=== PATIENT | female | born 2000 | race African-American/Black ===

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

== ENCOUNTER 2019-01-17 18:38 | Outpatient (CLI) | payer MEDICAID ==
--- NOTE | 2019-01-17 19:26 | RADIOLOGY REPORT (SQ) ---
EXAM DESCRIPTION: U/S OB LIMITED COMPLETED DATE/TIME: 01/17/2019 7:14 pm REASON FOR STUDY: and placenta wellbeing COMPARISON: None. TECHNIQUE: Limited transvaginal grayscale ultrasound for evaluation of specific requested obstetrica l parameters. LIMITATIONS: None. FINDINGS: CERVICAL LENGTH: Not assessed TY: 13.0 cm. FHR: 131 beats per minute. PRESENTATION: Cephalic. PLACENTA: Posterior ANATOMY: Not assessed OTHER: No other significant findings. IMPRESSION: LIMITED OBSTETRICAL ULTRASOUND WITH MEASURED PARAMETERS DELINEATED ABOVE. Trimester of : Third trimester - 28 weeks to delivery. TECHNICAL DOCUMENTATION: JOB ID: [id number] [employer]- All Rights Reserved Reading location - IP/workstation name: [email or web address]
[2019-01-17] MEDS ORDERED: NALBUPHINE HCL INJ 10 MG/1 ML AMPULE ONE ×2 (21:00→22:06)
[2019-01-17] MEDS ORDERED: NALBUPHINE HCL INJ 10 MG/1 ML AMPULE INJ ONE (21:00)
--- NOTE | 2019-01-17 21:56 | Non Stress Test Report ---
Non Stress Test Datetime Report Generated by CPN: 01/17/2019 21:55 DEMOGRAPHIC EGA NST: 36.1 INDICATION Indication for Study: Ordered by Provider VITAL SIGNS Temperature - NST: 98.0 MONITORING Monitor Explained: Monitor Explained; Test Explained; Patient Verbalized Understanding Time on Monitor: 01/17/2019 18:28 Time off Monitor: 01/17/2019 19:15 NST Duration: 47 NST INTERVENTIONS NST Interventions: IV Fluids Physician Notified NST: Dr. Younger BABY A: [id number] BABY A Movement : Present Contraction Frequency : x2 FHR Baseline : 125 Accelerations : 15X15 Decelerations : None Variability : Moderate 6-25bpm NST Review: Meets Criteria for Reactive NST NST Review and Verified By : Luly Zuleta RN NST Results: Reactive NST REPORT Report Trigger: Send Report
== END 2019-01-17 22:09 | disposition home or self-care (01) ==
LOC: LC 18:38
PROVIDERS: ATTEND Obstetrics & Gynecology
PROC: 4A1HXCZ Monitoring of Products of Conception, Cardiac Rate, External Approach (ICD-10-PCS; principal; 2019-01-17)
DX: O47.03 False labor before 37 completed weeks of gestation, third trimester (principal); Z3A.36 36 weeks gestation of pregnancy
CPT/HCPCS: 59025; 76815; J2300

== ENCOUNTER 2019-01-22 13:55 | Inpatient (IN) | payer MEDICAID ==
[2019-01-22 14:45] LABS: APPEARANCE,URINE CLEAR; BILIRUBIN,URINE NEGATIVE (NEGATIVE); COLOR,URINE STRAW; GLUCOSE, URINE NEGATIVE (NEGATIVE); KETONES,URINE NEGATIVE (NEGATIVE); LEUKOCYTE ESTERASE,URINE NEGATIVE (NEGATIVE); NITRITE,URINE NEGATIVE (NEGATIVE); PROTEIN,URINE NEGATIVE (NEGATIVE); URINE SPECIFIC GRAVITY 1.006; UROBILINOGEN,URINE NEGATIVE mg/dL (<2.0)
[2019-01-22 15:02] LABS: URINE AMPHETAMINES SCREEN NEGATIVE; URINE BARBITURATES SCREEN NEGATIVE; URINE BENZODIAZEPINES SCREEN NEGATIVE; URINE COCAINE SCREEN NEGATIVE; URINE MARIJUANA (THC) SCREEN NEGATIVE; URINE METHADONE SCREEN NEGATIVE; URINE PHENCYCLIDINE SCREEN NEGATIVE
[2019-01-22] MEDS ORDERED: RINGERS SOLUTION,LACTATED 1,000 ML IV PRN (15:16)
[2019-01-22] MEDS ORDERED: PENICILLIN G POTASSIUM 5,000,000 UNIT in DEXTROSE 5%-WATER 100 ML IV ONE (15:16)
[2019-01-22] MEDS ORDERED: RINGERS SOLUTION,LACTATED 1,000 ML IV ONE (15:16)
--- NOTE | 2019-01-22 15:21 | Admission Physical ---
Datetime Report Generated by CPN: 01/22/2019 15:21 CURRENT ADMISSION Chief Complaint: Uterine Contractions Chief Complaint Other: contractions Indication for Induction: Not Applicable Admit Impression : , Intrauterine Admit Plan: Admit to Unit; Initiate Labor Protocol Admit Plan- Other: Limited PNC ALLERGIES Medication Allergies: No Medication Allergies: No Known Allergies (12/19/2014) Latex: No Latex Allergies Food Allergies: N/A OBSTETRICAL HISTORY EDC: 02/13/2019 00:00 : 1 Para: 0 Term: 0 : 0 SAB: 0 IAB: 0 Ectopic: 0 Livin Cesareans: 0 VBACs: 0 Multiple Births: 0 Gestational Diabetes: No Rh Sensitization: No Incompetent Cervix: No LIO: No Infertility: No ART Treatment: No Uterine Anomaly: No IUGR: No Hx Previous C/S: No Macrosomia: No Hx Loss/Stillborn: No PIH: No Hx : No Placenta Previa/Abruption: No Depression/PP Depression: No PTL/PROM: No Post Hemorrhage: No Current Procedures: Ultrasound; NST Obstetrical History Comments: G1 - Current SEE RECORDS Alcohol: No Marijuana : No Cocaine: No Other Illicit Drugs: No Cigarettes: Never Smoker. [id number] MEDICAL HISTORY Diabetes: No Blood Transfusion: No Pulmonary Disease (Asthma, TB): No Breast Disease: No Hypertension: No Ob Gyn Surgery: No Heart Disease: No Hosp/Surgery: No Autoimmune Disorder: No Anesthetic Complications: No Kidney Disease: No Abnormal Pap Smear: No Neuro/Epilepsy: No Psychiatric Disorders: No Other Medical Diseases: No Hepatitis/Liver Disease: No Significant Family History: No Varicosities/Phlebitis: No Trauma/Violence : No Thyroid Dysfunction: No INFECTIOUS HISTORY Gonorrhea: No Genital Herpes: No Chlamydia: No Tuberculosis: No Syphilis: No Hepatitis: No HIV/AIDS Exposure: No Rash or Viral Illness: No HPV: No PHYSICAL EXAM General: Normal HEENT: Deferred Neurologic: Normal Thyroid: Deferred Heart: Normal Lungs: Normal Breast: Deferred Back: Deferred Abdomen: Normal Genitourinary Exam: Normal Extremities: Deferred DTRs: Deferred Pelvic Type: Adequate Vital Signs: Reviewed VAGINAL EXAM Dilatation: 4 Effacement: 100 Station: -1 MEMBRANES Membranes: Bulging FETUS A EGA: 36.6 Monitoring: External US FHR- Baseline: 135 Variability: Moderate 6-25bpm Accelerations: 15X15 Decelerations: None FHR Category: Category I Presentation: Vertex Admit Comment: sent from office GBS repeated today, was negative 12/18/18 desires epidural actim prom neg PLANS FOR LABOR AND DELIVERY Labor and Delivery: None Pain Management: Epidural Feeding Preference: Formula Benefit of Breast Feed Discussed: Yes Circumcision: Yes INFORMED CONSENT Informed Consent Obtained: Risks, Benefits and Alternatives Discussed Assignment: Catalina Bean MD Signature: with User ID: [email or web address] : with User ID: [email or web address]
[2019-01-22] MEDS ORDERED: BETAMET ACET/BETAMET NA INJ 6 MG/1 ML IM ONE (15:24)
[2019-01-22] MEDS ORDERED: OXYTOCIN 10 UNIT/ML VIAL ONE (15:50)
[2019-01-22] MEDS ORDERED: MISOPROSTOL 0.2 MG TABLET ONE (15:51)
[2019-01-22] MEDS ORDERED: OXYTOCIN/NORMAL SALINE 20 UNIT/1,000 ML RTUINJ ONE (15:51)
[2019-01-22] MEDS ORDERED: LIDOCAINE 1% INJ-PF (10 MG/ML) 30 ML SDV ONE (15:51)
[2019-01-22] MEDS ORDERED: PENICILLIN G-K 5 MILLION UNIT VIAL ONE (15:51)
[2019-01-22] MEDS ORDERED: BETAMET ACET/BETAMET NA INJ 6 MG/1 ML ONE (15:54)
[2019-01-22 16:16] LABS: CHLAM PCR NOT DETECTED (NOT DETECT)
[2019-01-22 16:30] LABS: ABSOLUTE LYMPHOCYTES (AUTO) 1.8 10^3/uL (0.5-4.7); ABSOLUTE MONOCYTES (AUTO) 0.9 10^3/uL (0.1-1.4); ABSOLUTE NEUT (AUTO) 7.5 10^3/uL (1.7-8.2); BASOPHILS % (AUTO) 0.4 % (0-2); EOSINOPHILS % (AUTO) 0.4 % (0-6); HEMATOCRIT 35.2 % (36.0-47.0); HEMOGLOBIN 11.8 g/dL (12.0-15.5); LYMPHOCYTES % (AUTO) 17.6 % (13-45); MEAN CORPUSCULAR HEMOGLOBIN 28.4 pg (27.0-33.4); MEAN CORPUSCULAR HGB CONC 33.5 g/dL (32.0-36.0); MEAN CORPUSCULAR VOLUME 85 fl (80-97); MONOCYTES % (AUTO) 8.7 % (3-13); PLATELET COUNT 213 10^3/uL (150-450); RED BLOOD COUNT 4.15 10^6/uL (3.72-5.28); RED CELL DISTRIBUTION WIDTH 14.9 % (11.5-14.0); SEGMENTED NEUTROPHILS % (AUTO) 72.9 % (42-78); TOTAL CELLS COUNTED % (AUTO) 100 %; WHITE BLOOD COUNT 10.3 10^3/uL (4.0-10.5)
[2019-01-22] MEDS ORDERED: FENTANYL CITRATE INJ/PF 100 MCG/2 ML AMPUL ONE (16:42)
[2019-01-22] MEDS ORDERED: NORMAL SALINE 250 ML IV PRN (18:08)
[2019-01-22] MEDS ORDERED: MEASLES,MUMPS&RUBELLA VACC/PF 0.5 ML VIAL SUBCUT PRN (19:21)
[2019-01-22] MEDS ORDERED: ACETAMINOPHEN WITH CODEINE #3 TABLET PO PRN (19:21)
[2019-01-22] MEDS ORDERED: GLYCERIN/WITCH HAZEL LEAF 1 EACH MED..WIPE TP PRN (19:21)
[2019-01-22] MEDS ORDERED: ACETAMINOPHEN 325 MG TABLET PO PRN (19:21)
[2019-01-22] MEDS ORDERED: NA PHOS,M-B/NA PHOS,DI-BA (ADULT) 133 ML ENEMA PR PRN (19:21)
[2019-01-22] MEDS ORDERED: DIBUCAINE 1% OINTMENT 56 GM TP PRN (19:21)
[2019-01-22] MEDS ORDERED: BENZOCAINE/MENTHOL AEROSOL SPRAY 56 ML TOP PRN (19:21)
[2019-01-22] MEDS ORDERED: DIPHENHYDRAMINE HCL 25 MG CAPSULE PO PRN (19:21)
[2019-01-22] MEDS ORDERED: PROMETHAZINE HCL 25 MG SUPP.RECT PR PRN (19:21)
[2019-01-22] MEDS ORDERED: OXYTOCIN/NORMAL SALINE 20 UNIT/1,000 ML RTUINJ IV PRN (19:21)
[2019-01-22] MEDS ORDERED: MAGNESIUM HYDROXIDE SUSP 30 ML UDCUP PO PRN (19:21)
[2019-01-22] MEDS ORDERED: ZOLPIDEM TARTRATE 5 MG TABLET PO PRN (19:21)
[2019-01-22] MEDS ORDERED: PROMETHAZINE HCL 25 MG TABLET PO PRN (19:21)
[2019-01-22] MEDS ORDERED: PSEUDOEPHEDRINE HCL 30 MG TABLET PO PRN (19:21)
[2019-01-22] MEDS ORDERED: DIPH/PERTUSS(ACELL)/TETANUS VAC/PF 0.5 ML SYR (>=10YO) IM PRN (19:21)
[2019-01-22] MEDS ORDERED: PENICILLIN G POTASSIUM 2,500,000 UNIT in DEXTROSE 5%-WATER 50 ML IV SCH (19:21)
[2019-01-22] MEDS ORDERED: PROMETHAZINE HCL INJ 25 MG/1 ML VIAL IV PRN (19:21)
--- NOTE | 2019-01-22 19:50 | Delivery Summary ---
Del Sum A-C Datetime Report Generated by CPN: 01/22/2019 19:50 DELIVERY PERSONNEL DELIVERY PERSONNEL: [id number] Delivery Doctor:: Meron Doherty CNM Nurse Senior Database Administrator Certified:: Meron Doherty CNM Labor and Delivery Nurse:: Wen Grigsby RN Labor and Delivery Nurse:: DIAMANTE Jang Nursery Nurse:: Marti Casas RN Stitch Welder/LINER ROLL CHANGER: Idalmis Clemens, ST MATERNAL INFORMATION Delivery Anesthesia: None Medications After Delivery: Pitocin Bolus-Please Comment; Pitocin Drip 20 Units/1000ml NSS; Cytotec 800mcg Per Rectum/Vagina Meds After Delivery Comment: Pitocin 20 units in 1000 ml nss open for bolus Delivery QBL: 450 Maternal Complications: Precipitous Labor (<3hrs); Other Provider Comments: Precipitous labor and del over 2* perineal lac, OA to FAVIAN. Shoulders del easily, baby placed on maternal abd. Cord clamped x 2 cut per family member. 3VC. Placenta spont via nicole, calcified. Perineum repaired and then clots removed from RADHA d/t steady trickle. Bleeding stablized, mother and infant stable. LABOR SUMMARY EDC: 02/13/2019 00:00 No. Babies in Womb: 1 Attempted: No Labor Anesthesia: None LABOR INFORMATION Reason for Induction: Not Applicable Onset of Labor: 01/22/2019 15:00 Complete Dilatation: 01/22/2019 16:22 Oxytocin: N/A Group B Beta Strep: 1 NO GROUP B STREPTOCOCCUS RECOVERED Antibiotics # of Doses: 1 Antibiotics Time of Last Dose: 1605 Name of Antibiotic Given: PENICILLIN G Steroids Given: Partial Course Reason Steroids Not Administered: Not Applicable Other Reason Not Administered: RECEIVED 2 DOSES IN [facility] Membranes Rupture Method: Spontaneous Rupture of Membranes: 01/22/2019 16:20 Length of Rupture (hr): 0.13 Amniotic Fluid Color: Clear Amniotic Fluid Amount: Moderate Amniotic Fluid Odor: Normal STAGES OF LABOR Stage 1 hr: 1 Stage 1 min: 22 Stage 2 hr: 0 Stage 2 min: 6 Stage 3 hr: 0 Stage 3 min: 7 Total Time in Labor hr: 1 Total Time in Labor min: 35 VAGINAL DELIVERY Episiotomy: None Laceration #1: Perineal; Vaginal Laceration Extension #1: Second Degree Laceration Repair: Yes Laceration Repair Note: 2* perineal lac repaired with chromic suture in usual fashion, 1% lidocaine used fo repair Sponge Count Correct: N/A Sharps Count Correct: N/A CSECTION DELIVERY Primary Indication: N/A Secondary Indication: N/A CSection Incidence: N/A Labor: N/A Elective: N/A CSection Incision: N/A BABY A INFORMATION Delivery Date/Time: 01/22/2019 16:28 Method of Delivery: Vaginal Born in Route : No : N/A Forceps: N/A Vacuum Extraction: N/A Shoulder Dystocia : No PRESENTATION/POSITION BABY A Presentation: Cephalic Cephalic Presentation: Vertex Vertex Position: Right Occipital Anterior Breech Presentation: N/A PLACENTA INFORMATION BABY A Placenta Delivery Time : 01/22/2019 16:35 Placenta Method of Delivery: Spontaneous Placenta Status: Delivered SCORES BABY A Heart Rate 1 min: >100 bpm Resp Effort 1 min: Good Cry Reflex Irritability 1 min: Cough or Sneeze or Pulls Away Muscle Tone 1 min: Some Flexion of Extremities Color 1 min: Body [place], Extremities Blue Resuscitation Effort 1 min: Tactile Stimulation SCORE 1 MIN: 8 Heart Rate 5 min: >100 bpm Resp Effort 5 min: Good Cry Reflex Irritability 5 min: Cough or Sneeze or Pulls Away Muscle Tone 5 min: Active Motion Color 5 min: Body [place], Extremities Blue Resuscitation Effort 5 min: N/A SCORE 5 MIN: 9 Resuscitation Effort 10 min: N/A INFANT INFORMATION BABY A Gestational Age at Delivery: 40.0 Gestational Status: Full Term- 39- 40.6 Weeks Infant Outcome : Liveborn Condition : Stable Infant Sex: Male IDENTIFICATION BABY A Verification Date/Time: 01/22/2019 17:27 ID Band Number: [id number] Mother's Name Verified: Yes Infant RN Verifying : Dulce Camp RNC Additional Verifying Personnel: S Brown LINER ROLL CHANGER WEIGHT/LENGTH BABY A Infant Birthweight (gm): 3206 Weight (lb): 7 Infant Weight (oz): 1 Infant Length (in): 20.00 Length (cm): 50.80 CORD INFORMATION BABY A No. Cord Vessels: 3 Nuchal Cord : N/A Cord Blood Taken: Yes-For Storage (Mom's Blood type +) Infant Suction: None ASSESSMENT BABY A Infant Complications: Other Infant Complications- Other: 36.2 weeks Physical Findings at Delivery: Extra Digit(s) Physical Findings- Other: extra digits right and left hand Infant Respirations: Appears Normal Skin to Skin: Yes Visual Aid Expert/ALS Called : No Infant Care By: Miesha Casas RN Transferred To: Remains with Mother BABY B INFORMATION : N/A SIGNATURES Assignment: Catalina Bean MD Signature: with User ID: [email or web address] : with User ID: [email or web address] : I was personally available for consultation and serving as supervising physician for the P.
[2019-01-22] MEDS: FAMOTIDINE 20 MG TABLET PO SCH (21:45)
[2019-01-22] MEDS: IBUPROFEN 800 MG TABLET PO SCH (21:45)
[2019-01-23] MEDS: IBUPROFEN 800 MG TABLET PO SCH ×3 (05:34→21:27)
[2019-01-23 07:04] LABS: HEMATOCRIT 35.6 % (36.0-47.0); HEMOGLOBIN 11.6 g/dL (12.0-15.5); MEAN CORPUSCULAR HEMOGLOBIN 27.7 pg (27.0-33.4); MEAN CORPUSCULAR HGB CONC 32.4 g/dL (32.0-36.0); MEAN CORPUSCULAR VOLUME 85 fl (80-97); PLATELET COUNT 236 10^3/uL (150-450); RED BLOOD COUNT 4.18 10^6/uL (3.72-5.28); RED CELL DISTRIBUTION WIDTH 14.9 % (11.5-14.0); WHITE BLOOD COUNT 20.6 10^3/uL (4.0-10.5)
[2019-01-23] MEDS: SENNOSIDES/DOCUSATE 8.6-50 MG 1 EACH TABLET PO SCH (09:21)
[2019-01-23] MEDS: PRENATAL VITAMIN W DHA CAPSULE PO SCH (09:21)
[2019-01-23] MEDS: FERROUS SULFATE 325 MG TABLET PO SCH ×2 (09:21→17:42)
[2019-01-23] MEDS: FAMOTIDINE 20 MG TABLET PO SCH ×2 (09:21→21:27)
[2019-01-23] MEDS: DOCUSATE SODIUM 100 MG CAPSULE PO SCH ×2 (09:21→17:42)
--- NOTE | 2019-01-23 10:04 | PDOC PROGRESS REPORT ---
Subjective-OB Progress Note for:: 01/23/19 Subjective: Doing well, no c/o, bottle feeding Physical Exam (OB) Vital Signs: Temp Pulse Resp BP Pulse Ox 98.2 F 64 16 100/51 L 99 01/23/19 07:22 01/23/19 07:22 01/23/19 07:22 01/23/19 07:22 01/23/19 07:22 Intake & Output 01/22/19 01/23/19 01/24/19 06:59 06:59 06:59 Weight 80.3 kg - PIH/Pre-Eclampsia Headache: Absent Epigastric Pain: No Visual Changes: No - Lochia Lochia Amount: Scant < 10 ml Lochia Color: Rubra/Red - Abdomen Description: Soft, Round Hernia Present: Yes Fundal Description: Firm, Midline Fundal Height: u/u - u/2 Objective-Diagnostic Laboratory: 01/23/19 06:29 01/22/19 01/22/19 01/22/19 14:15 16:10 16:10 WBC 10.3 RBC 4.15 Hgb 11.8 L Hct 35.2 L MCV 85 MCH 28.4 MCHC 33.5 RDW 14.9 H Plt Count 213 Seg Neutrophils % 72.9 Lymphocytes % 17.6 Monocytes % 8.7 Eosinophils % 0.4 Basophils % 0.4 Absolute Neutrophils 7.5 Absolute Lymphocytes 1.8 Absolute Monocytes 0.9 Absolute Eosinophils 0.0 Absolute Basophils 0.0 Urine Color STRAW Urine Appearance CLEAR Urine pH 8.0 Ur Specific [place] 1.006 Urine Protein NEGATIVE Urine Glucose (UA) NEGATIVE Urine Ketones NEGATIVE Urine Blood NEGATIVE Urine Nitrite NEGATIVE Ur Leukocyte Esterase NEGATIVE Blood Type A POSITIVE Antibody Screen TNP 01/23/19 06:29 WBC 20.6 H RBC 4.18 Hgb 11.6 L Hct 35.6 L MCV 85 MCH 27.7 MCHC 32.4 RDW 14.9 H Plt Count 236 Seg Neutrophils % Lymphocytes % Monocytes % Eosinophils % Basophils % Absolute Neutrophils Absolute Lymphocytes Absolute Monocytes Absolute Eosinophils Absolute Basophils Urine Color Urine Appearance Urine pH Ur Specific [place] Urine Protein Urine Glucose (UA) Urine Ketones Urine Blood Urine Nitrite Ur Leukocyte Esterase Blood Type Antibody Screen Assessment and Plan(PN) - Assessment and Plan (1) Vaginal delivery Is this a current diagnosis for this admission?: Yes (2) labor in third trimester Qualifiers: labor delivery status: without delivery Qualified Code(s): O60.03 - labor without delivery, third trimester Is this a current diagnosis for this admission?: Yes (3) Limited care Qualifiers: Trimester: unspecified trimester Qualified Code(s): O09.30 - Supervision of with insufficient care, unspecified trimester Is this a current diagnosis for this admission?: Yes - Time Spent with Patient Time with patient: Less than 15 minutes Medications reviewed and adjusted accordingly: Yes - Disposition Anticipated Discharge: Home Within: within 24 hours
[2019-01-23] MEDS: ACETAMINOPHEN WITH CODEINE #3 TABLET PO PRN ×2 (12:35→21:26)
[2019-01-24] MEDS: IBUPROFEN 800 MG TABLET PO SCH (05:20)
[2019-01-24 08:02] LABS: HEMATOCRIT 36.8 % (36.0-47.0); HEMOGLOBIN 11.9 g/dL (12.0-15.5); MEAN CORPUSCULAR HGB CONC 32.4 g/dL (32.0-36.0); MEAN CORPUSCULAR VOLUME 86 fl (80-97); PLATELET COUNT 234 10^3/uL (150-450); RED BLOOD COUNT 4.26 10^6/uL (3.72-5.28); RED CELL DISTRIBUTION WIDTH 14.9 % (11.5-14.0); WHITE BLOOD COUNT 17.4 10^3/uL (4.0-10.5)
[2019-01-24 09:36] VITALS: BP 110/61
[2019-01-24] MEDS: PRENATAL VITAMIN W DHA CAPSULE PO SCH (10:27)
[2019-01-24] MEDS: FERROUS SULFATE 325 MG TABLET PO SCH (10:27)
[2019-01-24] MEDS: SENNOSIDES/DOCUSATE 8.6-50 MG 1 EACH TABLET PO SCH (10:28)
[2019-01-24] MEDS: DOCUSATE SODIUM 100 MG CAPSULE PO SCH (10:28)
[2019-01-24] MEDS: FAMOTIDINE 20 MG TABLET PO SCH (10:28)
--- NOTE | 2019-01-24 12:35 | PDOC DISCHARGE SUMMARY ---
Final Diagnosis Discharge Date: 01/24/19 - Final Diagnosis (1) Normal course Is this a current diagnosis for this admission?: Yes (2) Labor, precipitous, delivered Is this a current diagnosis for this admission?: Yes (3) Vaginal delivery Is this a current diagnosis for this admission?: Yes (4) Limited care Is this a current diagnosis for this admission?: Yes Discharge Data - Discharge Medication Home Medications: No122/Iron/Folic Acid [ Multi Tablet] 1 each PO DAILY 12/18/18 Reason(s) for Admission: Onset of Labor Procedures: NST Intrapartum Procedure(s): Spontaneous Vaginal Delivery Complication(s): Laceration-Perineal Laceration-Degree: 2nd - Diagnosis Test Laboratory: Temp Pulse Resp BP Pulse Ox 97.8 F 60 22 110/61 100 01/24/19 10:42 01/24/19 10:42 01/24/19 10:42 01/24/19 10:42 01/24/19 10:42 01/22/19 01/22/19 01/23/19 14:15 16:10 06:29 RBC 4.15 4.18 Hgb 11.8 L 11.6 L Hct 35.2 L 35.6 L Urine Opiates Screen NEGATIVE 01/24/19 06:51 RBC 4.26 Hgb 11.9 L Hct 36.8 Urine Opiates Screen - Discharge information/Instructions Discharge Activity: Balance Activity w/Rest, Pelvic Rest Discharge Diet: Regular Disposition: HOME, SELF-CARE Follow up with: [facility] in: 4, Weeks
== END 2019-01-24 13:45 | disposition home or self-care (01) | DRG 807 ==
LOC: LC 13:55 → LR 15:17 → 2S 20:36
PROVIDERS: ADMIT Student in an Organized Health Care Education/Training Program; ATTEND Student in an Organized Health Care Education/Training Program
PROC: 10E0XZZ Delivery of Products of Conception, External Approach (ICD-10-PCS; principal; 2019-01-22)
PROC: 0KQM0ZZ Repair Perineum Muscle, Open Approach (ICD-10-PCS; 2019-01-22)
DX: O62.3 Precipitate labor (principal); Z37.0 Single live birth; O99.824 Streptococcus B carrier state complicating childbirth; O70.1 Second degree perineal laceration during delivery; Z3A.40 40 weeks gestation of pregnancy
CPT/HCPCS: 36415; 80307; 81005; 84112; 85025; 85027; 86592; 86850; 86900; 86901; 87081; 87491; 87591; 88307; J0702; J2540; J2590; J3010; J3490

== ENCOUNTER 2019-01-31 21:09 | Emergency (ER) | payer MEDICAID ==
--- NOTE | 2019-01-31 22:11 | ER Document Report ---
ED General - General Chief Complaint: Vaginal Bleeding Stated Complaint: HEAVY VAGINAL BLEEDING Time Seen by Provider: 01/31/19 21:59 Primary Care Provider: PEBBLES OROZCO DO [Primary Care Provider] - Follow up as needed Notes: Patient is a 18-year-old female presents with complaint of vaginal bleeding. She says she has had consistent vaginal bleeding since she delivered several days ago. She had vaginal delivery without significant complications. No fevers. No vomiting. No passing out episodes. Some dizziness. She says the bleeding elevate heavier tonight and therefore she came to the ER. She did try to contact her OB office but they are closed. No other complaints at this time. She delivered on January 22 and was discharged from hospital on January 24. TRAVEL OUTSIDE OF THE [place] IN LAST 30 DAYS: No - Related Data Allergies/Adverse Reactions: No Known Allergies Allergy (Unverified 12/19/14 12:43) Past Medical History - Social History Smoking Status: Never Smoker Frequency of alcohol use: None Drug Abuse: None Family History: Reviewed & Not Pertinent Patient has suicidal ideation: No Patient has homicidal ideation: No Pulmonary Medical History: Denies: Hx Asthma, Hx Bronchitis Endocrine Medical History: Denies: Hx Diabetes Mellitus Type 1 Renal/ Medical History: Denies: Hx Peritoneal Dialysis Psychiatric Medical History: Denies: Hx Anxiety Traumatic Medical History: Reports: Hx Fractures - Arm - Immunizations Immunizations up to date: Yes Hx Diphtheria, Pertussis, Tetanus Vaccination: Yes Review of Systems - Review of Systems Notes: My Normal Review Basic REVIEW OF SYSTEMS: CONSTITUTIONAL : Denies fever, chills, or sweats. Denies recent illness. CARDIOVASCULAR: Denies chest pain. RESPIRATORY: Denies cough, cold, or chest congestion. Denies shortness of breath, difficulty breathing, or wheezing. GASTROINTESTINAL: Some suprapubic abdominal pain. Denies nausea, vomiting, or diarrhea. FEMALE GENITOURINARY: vaginal bleeding MUSCULOSKELETAL: Denies neck or back pain or joint pain or swelling. SKIN: Denies rash or skin lesions. NEUROLOGICAL: Denies altered mental status or loss of consciousness. Denies headache. Denies weakness or paralysis or loss of use of either side. Denies problems with gait or speech. Denies sensory or motor loss. ALL OTHER SYSTEMS REVIEWED AND NEGATIVE. Physical Exam - Vital signs Vitals: Temp Pulse BP Pulse Ox 98.2 F 57 L 115/78 98 07/25/19 21:20 01/31/19 21:20 01/31/19 21:20 01/31/19 21:20 - Notes Notes: General Appearance: Well nourished, alert, cooperative, no acute distress, mild obvious discomfort. Vitals: reviewed, See vital signs table. Eyes: PERRL, EOMI, Conjuctiva clear Mouth: No decreasd moisture Lungs: No wheezing, No rales, No rhonci, No accessory muscle use, good air exchange bilaterally. Heart: Normal rate, Regular rythm, No murmur, no rub Abdomen: Normal BS, soft, No rigidity, No abdominal tenderness, No guarding, no rebound, no abdominal masses, no organomegaly Pelvic exam: Pelvic exam performed with female nurse, Debbie Eddy, bedside. External genitalia appears to be intact. Do not see any abnormal vaginal lacerations. She does have some blood coming from the vaginal introitus. She does not have an active large flow at this time. Skin: warm, dry, appropriate color, no rash Neuro: speech clear, oriented x 3, normal affect, responds appropriately to questions. Course - Re-evaluation Re-evalutation: 02/01/19 00:10 She looks very well on exam. Vital signs are normal. Ultrasound discussion concerning findings. On exam she had some vaginal bleeding but it was not a large active hemorrhage. Hemoglobin is normal. At this time I feel she safe to be discharged home. I did discuss case with Dr. Luis, digital account executive on-call, who requested she come to the office this coming morning. He says she does not need an appointment and that she should just show up this morning they will reevaluate her. I explained the plan to the patient she is agreeable with the. I encouraged her to return to ER if she has worsening bleeding, fevers, worsening pain, or she feels like she is worsening in any way. Patient agrees with plan will be discharged home. Dictation of this chart was performed using voice recognition software; therefore, there may be some unintended grammatical errors. - Vital Signs Vital signs: Temp Pulse Resp BP Pulse Ox 98.2 F 57 L 115/78 98 01/31/19 21:20 01/31/19 21:20 01/31/19 21:20 01/31/19 21:20 - Laboratory Result Diagrams: 01/31/19 21:35 01/31/19 21:35 Laboratory results interpreted by me: 01/31/19 21:35 RDW 14.5 H Seg Neutrophils % 41.7 L Lymphocytes % 46.8 H Discharge - Discharge Clinical Impression: hemorrhage of vagina Condition: Good Disposition: HOME, SELF-CARE Additional Instructions: Currently your blood counts look okay and your ultrasound did not show any concerning findings. It is sill very important that you follow-up this morning with the FUEL BUYER physician at the [facility]. I did speak with Dr. Luis. He is the FUEL BUYER physician application counselor. He wants you to come to the office this morning. He said you do not need an appointment. He said just to show up at the office this morning and they will work you in and evaluate you. Please have a low threshold to return to ER for fevers, worsening pain, heavy bleeding, or if you feel like you are worsening in any way. Referrals: BJORN LUIS MD [ACTIVE STAFF] - 02/01/19
[2019-01-31 22:27] LABS: ABSOLUTE EOSINOPHILS # (AUTO) 0.2 10^3/uL (0.0-0.6); ABSOLUTE LYMPHOCYTES (AUTO) 2.5 10^3/uL (0.5-4.7); ABSOLUTE MONOCYTES (AUTO) 0.5 10^3/uL (0.1-1.4); ABSOLUTE NEUT (AUTO) 2.3 10^3/uL (1.7-8.2); BASOPHILS % (AUTO) 0.4 % (0-2); EOSINOPHILS % (AUTO) 2.8 % (0-6); HEMATOCRIT 38.6 % (36.0-47.0); HEMOGLOBIN 12.8 g/dL (12.0-15.5); LYMPHOCYTES % (AUTO) 46.8 % (13-45); MEAN CORPUSCULAR HGB CONC 33.2 g/dL (32.0-36.0); MEAN CORPUSCULAR VOLUME 85 fl (80-97); MONOCYTES % (AUTO) 8.3 % (3-13); PLATELET COUNT 406 10^3/uL (150-450); RED BLOOD COUNT 4.57 10^6/uL (3.72-5.28); RED CELL DISTRIBUTION WIDTH 14.5 % (11.5-14.0); SEGMENTED NEUTROPHILS % (AUTO) 41.7 % (42-78); TOTAL CELLS COUNTED % (AUTO) 100 %; WHITE BLOOD COUNT 5.5 10^3/uL (4.0-10.5)
[2019-01-31 22:32] LABS: ANION GAP 11 (5-19); BLOOD UREA NITROGEN 10 mg/dL (7-20); CALCIUM 10.1 mg/dL (8.4-10.2); CARBON DIOXIDE 24 mmol/L (22-30); CHLORIDE 106 mmol/L (98-107); GLUCOSE 84 mg/dL (75-110)
[2019-01-31 22:33] LABS: POTASSIUM 3.8 mmol/L (3.6-5.0)
--- NOTE | 2019-01-31 23:43 | RADIOLOGY REPORT (SQ) ---
EXAM DESCRIPTION: US PELVIS COMPLETED DATE/TME: 01/31/2019 22:07 CLINICAL HISTORY: 18 years, Female, post bleeding COMPARISON: 01/17/2019 ultrasound TECHNIQUE: Transabdominal and transvaginal sonographic images of the pelvis in a recent patient LIMITATIONS: None. FINDINGS: uterus measuring 12.8 x 9.1 x 8.2 cm. Endometrium measures 1.3 cm in thickness. Fluid and debris in the endometrial canal. This is nonspecific. Myometrium is homogenous. Right ovary measures 3.0 x 1.1 x 1.3 cm. Left ovary measures 2.9 x 1.5 x 1.2 cm. Arterial and venous flow to both ovaries. No adnexal cyst or mass. No free fluid IMPRESSION: Nonspecific fluid and debris within the endometrial canal. Remainder unremarkable copyright 2010 [employer]- All Rights Reserved
[2019-02-01 00:20] VITALS: BP 109/48
== END 2019-02-01 00:17 | disposition home or self-care (01) ==
LOC: ER 21:09
DX: O72.1 Other immediate postpartum hemorrhage (principal); R42 Dizziness and giddiness
CPT/HCPCS: 36415; 76856; 80048; 85025; 93976; 99284

== ENCOUNTER 2019-02-19 10:10 | Emergency (ER) | payer MEDICAID ==
--- NOTE | 2019-02-19 11:05 | ER Document Report ---
ED Medical Screen (RME) - General Chief Complaint: Vaginal Bleeding Stated Complaint: VAGINAL BLEEDING Time Seen by Provider: 02/19/19 11:03 Primary Care Provider: PEBBLES OROZCO DO [Primary Care Provider] - Follow up as needed Information source: Patient Notes: Patient states that she delivered on 01/22/2019. Patient has had vaginal bleeding since the delivery. Patient states that the bleeding has increased and she is passing large clots and feeling lightheaded. Patient does complain of lower pelvic pain. No fever. I have greeted and performed a rapid initial assessment of this patient. A comprehensive ED assessment and evaluation of the patient, analysis of test results and completion of the medical decision making process will be conducted by additional ED providers. TRAVEL OUTSIDE OF THE [place] IN LAST 30 DAYS: No - Related Data Allergies/Adverse Reactions: No Known Allergies Allergy (Verified 02/19/19 10:10) Past Medical History Pulmonary Medical History: Denies: Hx Asthma, Hx Bronchitis Endocrine Medical History: Denies: Hx Diabetes Mellitus Type 1 Renal/ Medical History: Denies: Hx Peritoneal Dialysis Psychiatric Medical History: Denies: Hx Anxiety Traumatic Medical History: Reports: Hx Fractures - Arm - Immunizations Immunizations up to date: Yes Hx Diphtheria, Pertussis, Tetanus Vaccination: Yes Physical Exam - Vital signs Vitals: Temp Pulse Resp BP Pulse Ox 98.1 F 53 L 19 107/83 99 02/19/19 10:20 02/19/19 10:20 02/19/19 10:20 02/19/19 10:20 02/19/19 10:20 - Abdominal Tenderness: Tender - Lower pelvic Course - Vital Signs Vital signs: Temp Pulse Resp BP Pulse Ox 98.1 F 53 L 19 107/83 99 02/19/19 10:20 02/19/19 10:20 02/19/19 10:20 02/19/19 10:20 02/19/19 10:20 Doctor's Discharge - Discharge Referrals: PEBBLES OROZCO DO [Primary Care Provider] - Follow up as needed
[2019-02-19 11:38] LABS: ABSOLUTE EOSINOPHILS # (AUTO) 0.1 10^3/uL (0.0-0.6); ABSOLUTE LYMPHOCYTES (AUTO) 1.8 10^3/uL (0.5-4.7); ABSOLUTE MONOCYTES (AUTO) 0.3 10^3/uL (0.1-1.4); BASOPHILS % (AUTO) 0.7 % (0-2); EOSINOPHILS % (AUTO) 3.6 % (0-6); HEMATOCRIT 41.2 % (36.0-47.0); HEMOGLOBIN 13.6 g/dL (12.0-15.5); MEAN CORPUSCULAR HEMOGLOBIN 28.1 pg (27.0-33.4); MEAN CORPUSCULAR VOLUME 85 fl (80-97); MONOCYTES % (AUTO) 9.2 % (3-13); PLATELET COUNT 321 10^3/uL (150-450); RED BLOOD COUNT 4.83 10^6/uL (3.72-5.28); RED CELL DISTRIBUTION WIDTH 13.9 % (11.5-14.0); SEGMENTED NEUTROPHILS % (AUTO) 31.5 % (42-78); TOTAL CELLS COUNTED % (AUTO) 100 %; WHITE BLOOD COUNT 3.3 10^3/uL (4.0-10.5)
--- NOTE | 2019-02-19 13:54 | ER Document Report ---
ED General - General Chief Complaint: Vaginal Bleeding Stated Complaint: VAGINAL BLEEDING Time Seen by Provider: 02/19/19 11:03 Primary Care Provider: PEBBLES OROZCO DO [ACTIVE STAFF] - Follow up as needed Notes: 18-year-old female presents emergency department complaining about nonstop heavy vaginal bleeding since she had a vaginal delivery on 01/22/2019. Patient states that after delivery she bled a lot and they had to do a D&C. Since then she has been having constant bleeding, states he got heavier few days ago when she is having golf ball sized clots associated with cramping lower abdominal pain that feels like contractions. Patient states that she has felt somewhat lightheaded as well. Denies fevers, chills, foul odor with her vaginal discharge. Admits to vomiting twice yesterday. TRAVEL OUTSIDE OF THE [place] IN LAST 30 DAYS: No - Related Data Allergies/Adverse Reactions: No Known Allergies Allergy (Verified 02/19/19 10:10) Past Medical History - General Information source: Patient - Social History Smoking Status: Never Smoker Chew tobacco use (# tins/day): No Frequency of alcohol use: None Drug Abuse: None Family History: Reviewed & Not Pertinent Patient has suicidal ideation: No Patient has homicidal ideation: No Pulmonary Medical History: Denies: Hx Asthma, Hx Bronchitis Endocrine Medical History: Denies: Hx Diabetes Mellitus Type 1 Renal/ Medical History: Denies: Hx Peritoneal Dialysis Psychiatric Medical History: Denies: Hx Anxiety Traumatic Medical History: Reports: Hx Fractures - Arm - Immunizations Immunizations up to date: Yes Hx Diphtheria, Pertussis, Tetanus Vaccination: Yes Review of Systems - Review of Systems Constitutional: See HPI, Weakness EENT: No symptoms reported Gastrointestinal: See HPI Female Genitourinary: See HPI -: Yes All other systems reviewed and negative Physical Exam - Vital signs Vitals: Temp Pulse Resp BP Pulse Ox 98.1 F 53 L 19 107/83 99 02/19/19 10:20 02/19/19 10:20 02/19/19 10:20 02/19/19 10:20 02/19/19 10:20 - Notes Notes: GENERAL: Alert, interacts well. No acute distress. HEAD: Normocephalic, atraumatic EYES: Pupils equal, round and reactive to light, extraocular movements intact. ENT: Oral mucosa moist, tongue midline. NECK: Full range of motion, supple, trachea midline. LUNGS: Clear to auscultation bilaterally, no wheezes, rales or rhonchi, no respiratory distress. HEART: Regular rate and rhythm, no murmurs, gallops, rubs. ABDOMEN: Soft, nontender, nondistended, bowel sounds present in all 4 quadrants. EXTREMITIES: Moves all 4 extremities spontaneously, no edema, radial and dorsalis pedis pulses 2/4 bilaterally. No cyanosis. NEUROLOGICAL: Alert and oriented x3, normal speech. PSYCH: Normal mood, normal affect. SKIN: Warm, Dry, normal turgor, no rashes or lesions noted. - Genitourinary External exam: Normal Speculum exam: Normal, Cervix closed Vaginal bleeding: Mild Bimanuel exam: Normal Notes: Mild bleeding, not heavy. Able to be cleared away with Q-tips, no clots. Course - Re-evaluation Re-evalutation: 02/19/19 14:48 CBC shows slight low white count of 3.3 otherwise unremarkable, hemoglobin is actually improved at 13.6, previously was 12.8 and on discharge from the hospital a month ago was 11.9. test is negative, pelvic ultrasound shows echogenic focus within the endometrial canal measuring 3.5 x 3.5 mm. Etiology uncertain and possibly calcification or postsurgical change. 02/19/19 14:[address] Miguel Ángel Barreto the SOCIAL SECURITY BENEFITS INTERVIEWER on-call who agrees that the improving hemoglobin is reassuring, reiterates that bleeding can continue in the postpartu m period up to 6 weeks. Patient will be discharged home, given Methergine 0.2 mg TID for the next week. Follow-up at her 6-week follow-up appointment. - Vital Signs Vital signs: Temp Pulse Resp BP Pulse Ox 98.1 F 53 L 19 107/83 99 02/19/19 10:20 02/19/19 10:20 02/19/19 10:20 02/19/19 10:20 02/19/19 10:20 - Laboratory Result Diagrams: 02/19/19 11:15 Laboratory results interpreted by me: 02/19/19 11:15 WBC 3.3 L Seg Neutrophils % 31.5 L Lymphocytes % 55.0 H Absolute Neutrophils 1.0 L Discharge - Discharge Clinical Impression: bleeding Qualifiers: hemorrhage type: unspecified Qualified Code(s): O72.1 - Other immediate hemorrhage Condition: Stable Disposition: HOME, SELF-CARE Additional Instructions: Please take the Methergine 0.2 mg 3 times a day for the next week. This should help to decrease her vaginal bleeding. Please return to the emergency department should your bleeding gets heavier, your bleeding develop a foul odor, you develop worsening pain or you develop any fevers. Please keep your 6-week follow-up appointment with SOCIAL SECURITY BENEFITS INTERVIEWER. Prescriptions: Methylergonovine Maleate [Methergine 0.2 Mg Tablet] 0.2 mg PO TID #21 tablet Referrals: PEBBLES OROZCO DO [ACTIVE STAFF] - Follow up as needed
--- NOTE | 2019-02-19 14:24 | RADIOLOGY REPORT (SQ) ---
EXAM DESCRIPTION: U/S NON OB PEL W/DOPPLER COMPLETED DATE/TIME: 02/19/2019 1:26 pm REASON FOR STUDY: heavy bleeding, PP 01/22 COMPARISON: 01/31/2019 TECHNIQUE: Dynamic and static grayscale images acquired of the pelvis via transabdominal approach an d recorded on PACS. Additional selected color Doppler and spectral images recorded. LIMITATIONS: None. FINDINGS: UTERUS: Contour normal. No mass. ENDOMETRIAL STRIPE: Endometrial stripe measures 12 mm in thickness. There is a 3.5 x 3.5 mm echogeni c focus with ring down artifact within the endometrial canal. CERVIX: Cervix measures 1.8 cm. No nabothian cyst. RIGHT OVARY AND DOPPLER: Normal size. No worrisome masses. Normal arterial vascular flow without evid ence for torsion. LEFT OVARY AND DOPPLER: Normal size. No worrisome masses. Normal arterial vascular flow without evide nce for torsion. FREE FLUID: None noted. OTHER: No other significant finding. MEASUREMENTS: UTERUS: 9.9 x 6.4 x 6.3 cm. ENDOMETRIAL STRIPE: 12 mm. RIGHT OVARY: 3.9 x 3.7 x 1.9 cm. LEFT OVARY: 3.7 x 1.7 x 2.7 cm. IMPRESSION: Echogenic focus within the endometrial canal measuring 3.5 x 3.5 mm. Etiology uncertain and possibly calcification / surgical change. TECHNICAL DOCUMENTATION: JOB ID: [id number] [employer]- All Rights Reserved Rev-11/24 Reading location - IP/workstation name: [email or web address]
[2019-02-19 15:24] VITALS: BP 112/58
== END 2019-02-19 15:23 | disposition home or self-care (01) ==
LOC: ER 10:10
DX: O72.1 Other immediate postpartum hemorrhage (principal); O90.89 Other complications of the puerperium, not elsewhere classified; R10.30 Lower abdominal pain, unspecified; R11.10 Vomiting, unspecified; R53.1 Weakness; Z98.890 Other specified postprocedural states
CPT/HCPCS: 36415; 76856; 84703; 85025; 86850; 86900; 86901; 93976; 99284

== ENCOUNTER 2019-08-13 19:04 | Emergency (ER) | payer MEDICAID ==
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
[2019-08-13 21:09] LABS: APPEARANCE,URINE SLIGHTLY-CLOUDY; BILIRUBIN,URINE NEGATIVE (NEGATIVE); COLOR,URINE YELLOW; GLUCOSE, URINE NEGATIVE (NEGATIVE); KETONES,URINE NEGATIVE (NEGATIVE); LEUKOCYTE ESTERASE,URINE SMALL (NEGATIVE); NITRITE,URINE NEGATIVE (NEGATIVE); PROTEIN,URINE 30 mg/dL (NEGATIVE); URINE SPECIFIC GRAVITY 1.028
[2019-08-13 21:15] LABS: ABSOLUTE EOSINOPHILS # (AUTO) 0.1 10^3/uL (0.0-0.6); ABSOLUTE LYMPHOCYTES (AUTO) 2.6 10^3/uL (0.5-4.7); ABSOLUTE MONOCYTES (AUTO) 0.4 10^3/uL (0.1-1.4); ABSOLUTE NEUT (AUTO) 1.9 10^3/uL (1.7-8.2); BASOPHILS % (AUTO) 0.3 % (0-2); EOSINOPHILS % (AUTO) 2.4 % (0-6); HEMATOCRIT 30.9 % (36.0-47.0); LYMPHOCYTES % (AUTO) 51.1 % (13-45); MEAN CORPUSCULAR HGB CONC 32.3 g/dL (32.0-36.0); MEAN CORPUSCULAR VOLUME 71 fl (80-97); MONOCYTES % (AUTO) 8.3 % (3-13); PLATELET COUNT 412 10^3/uL (150-450); RED BLOOD COUNT 4.33 10^6/uL (3.72-5.28); RED CELL DISTRIBUTION WIDTH 18.6 % (11.5-14.0); SEGMENTED NEUTROPHILS % (AUTO) 37.9 % (42-78); TOTAL CELLS COUNTED % (AUTO) 100 %
[2019-08-13 21:19] LABS: URINE AMPHETAMINES SCREEN NEGATIVE; URINE BARBITURATES SCREEN NEGATIVE; URINE BENZODIAZEPINES SCREEN NEGATIVE; URINE COCAINE SCREEN NEGATIVE; URINE MARIJUANA (THC) SCREEN NEGATIVE; URINE METHADONE SCREEN NEGATIVE; URINE PHENCYCLIDINE SCREEN NEGATIVE
[2019-08-13 21:30] LABS: ALBUMIN 5.1 g/dL (3.7-5.6); ALKALINE PHOSPHATASE 55 U/L (50-135); ANION GAP 15 (5-19); ASPARTATE AMINO TRANSFERASE 21 U/L (5-30); BILIRUBIN,DIRECT 0.2 mg/dL (0.0-0.4); BILIRUBIN,TOTAL 0.3 mg/dL (0.2-1.3); BLOOD UREA NITROGEN 14 mg/dL (7-20); CALCIUM 9.8 mg/dL (8.4-10.2); CARBON DIOXIDE 22 mmol/L (22-30); CHLORIDE 104 mmol/L (98-107); GLUCOSE 84 mg/dL (75-110); POTASSIUM 3.9 mmol/L (3.6-5.0); TOTAL PROTEIN 9.4 g/dL (6.3-8.2)
[2019-08-13 21:33] LABS: ACETAMINOPHEN < 10 ug/mL (10-30); ALCOHOL < 10 mg/dL (NONE DETECTED); SALICYLATE < 1.0 mg/dL (2.0-20.0)
--- NOTE | 2019-08-13 21:58 | EKG REPORT ---
SEVERITY:- BORDERLINE ECG - SINUS BRADYCARDIA BORDERLINE T ABNORMALITIES, ANTERIOR LEADS : Confirmed by: Jenn Herman MD 13-Aug-2019 21:58:12
--- NOTE | 2019-08-14 17:36 | ER Document Report ---
Doctor's Note Notes: 08/14/19 17:33 Progress note: Patient is a 18-year-old -Slovenian female who was brought here yesterday for suicidal ideations, suicidal attempt and depression. Upon evaluation today she is resting comfortably in the room, lying under the covers in the dark with the TV on. States she still feels sad and depressed. She states that she thinks too much sometimes. She denies any further suicidal ideations, homicidal ideations, delusions or hallucinations. She has no medical complaints. Her vitals are stable. She states that she is excited to get home and see her 6-month-old son, she smiles about this and states that he makes her happy. Heart: Regular rate and rhythm, lungs: Clear to auscultation bilaterally. Vitals stable. New medications per psychiatric evaluation are to add Prozac 20 mg p.o. daily and Zyprexa 5 mg p.o. every morning and 2.5 p.o. nightly. We will continue to monitor her overnight. Reevaluate tomorrow for possible placement.
[2019-08-14] MEDS: FLUOXETINE HCL 20 MG CAPSULE PO SCH (18:16)
[2019-08-14] MEDS ORDERED: OLANZAPINE 2.5 MG TABLET PO SCH (22:00)
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
[2019-08-15] MEDS ORDERED: OLANZAPINE 5 MG TABLET PO SCH (08:00)
[2019-08-15] MEDS: FLUOXETINE HCL 20 MG CAPSULE PO SCH (09:34)
[2019-08-15 17:35] VITALS: BP 105/60
--- NOTE | 2019-08-15 17:48 | ER Document Report ---
Doctor's Note Notes: 08/15/19 17:46 Progress note: Patient is a 18-year-old -Palest[place] female who was brought here for suicidal ideations, suicidal attempt and depression. Upon evaluation today she states that she is ready to leave. She is happy and in good spirits. Her friend is with her, ready to help care for her and administer her medications as discussed. She denies any further suicidal ideations, homicidal ideations, delusions or hallucinations. She has no medical complaints. Her vitals are stable. She states that she is still excited to get home and see her 6-month-old son, she smiles about this and states that he makes her happy. States that she has been sleeping a lot today and is well rested. Heart: Regular rate and rhythm, lungs: Clear to auscultation bilaterally. Vitals stable. She will continue to medication started by psych outpatient, Prozac 20 mg p.o. daily and Zyprexa 5 mg p.o. every morning and 2.5 p.o. nightly. She is stable and appropriate for discharge at this time. 08/15/19 17:48
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
== END 2019-08-15 17:44 | disposition home or self-care (01) ==
LOC: ER 19:04
DX: T14.91XA Suicide attempt, initial encounter (principal); X83.8XXA Intentional self-harm by other specified means, initial encounter; Y93.89 Activity, other specified; F32.9 Major depressive disorder, single episode, unspecified
CPT/HCPCS: 93005; 36415; 80307 ×4; 85025; 81025; 80053; 81001; 93010; J3490 ×2

== ENCOUNTER 2019-09-25 22:37 | Emergency (ER) | payer MEDICAID ==
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
[2019-09-25 22:52] VITALS: BP 110/72
== END 2019-09-25 22:56 | disposition home or self-care (01) ==
LOC: ER 22:37
DX: F41.0 Panic disorder [episodic paroxysmal anxiety] (principal); F41.9 Anxiety disorder, unspecified
CPT/HCPCS: 99283

== ENCOUNTER 2019-10-27 11:15 | Emergency (ER) | payer MEDICAID, OTHER ==
[2019-10-27] MEDS ORDERED: NORMAL SALINE 1000 ML 1,000 ML IV ONE ×2 (12:16→13:27)
[2019-10-27 12:46] LABS: APPEARANCE,URINE SLIGHTLY-CLOUDY; BILIRUBIN,URINE NEGATIVE (NEGATIVE); COLOR,URINE YELLOW; GLUCOSE, URINE NEGATIVE (NEGATIVE); KETONES,URINE NEGATIVE (NEGATIVE); PROTEIN,URINE 100 mg/dL (NEGATIVE); URINE SPECIFIC GRAVITY 1.025
[2019-10-27 12:52] LABS: ABSOLUTE EOSINOPHILS # (AUTO) 0.1 10^3/uL (0.0-0.6); ABSOLUTE LYMPHOCYTES (AUTO) 1.4 10^3/uL (0.5-4.7); ABSOLUTE MONOCYTES (AUTO) 0.5 10^3/uL (0.1-1.4); ABSOLUTE NEUT (AUTO) 1.9 10^3/uL (1.7-8.2); BASOPHILS % (AUTO) 0.5 % (0-2); HEMATOCRIT 29.5 % (36.0-47.0); HEMOGLOBIN 9.3 g/dL (12.0-15.5); LYMPHOCYTES % (AUTO) 36.5 % (13-45); MEAN CORPUSCULAR HEMOGLOBIN 21.7 pg (27.0-33.4); MEAN CORPUSCULAR HGB CONC 31.5 g/dL (32.0-36.0); MEAN CORPUSCULAR VOLUME 69 fl (80-97); MONOCYTES % (AUTO) 12.8 % (3-13); PLATELET COUNT 356 10^3/uL (150-450); RED BLOOD COUNT 4.29 10^6/uL (3.72-5.28); RED CELL DISTRIBUTION WIDTH 18.1 % (11.5-14.0); SEGMENTED NEUTROPHILS % (AUTO) 47.2 % (42-78); TOTAL CELLS COUNTED % (AUTO) 100 %
--- NOTE | 2019-10-27 13:05 | ER Document Report ---
ED GI/ - General Chief Complaint: Urinary Problem Stated Complaint: PAIN/BURNING WHEN URINATING Time Seen by Provider: 10/27/19 11:49 Mode of Arrival: Ambulatory Information source: Patient Notes: 19-year-old female presented to ED for complaint of no urine in almost 24 hours. She states she used some laboratory center and wipes on her vaginal area for the last 5 days and then she started having burning and then over the last 24 hours she is not been able to urinate. Her Monique catheter in and only got return of 30 cc of urine. I have ordered her a liter of fluids. The Monique catheter is still in place we will wait for the urine results. TRAVEL OUTSIDE OF THE [place] IN LAST 30 DAYS: No - HPI Patient complains to provider of: Vaginal pain Onset: Other - Last 24 hours Timing/Duration: Gradual Quality of pain: Burning Severity at maximum: Severe Severity in ED: None Pain Level: Denies Location: Vaginal Associated symptoms: Urinary retention, Other - Vaginal burning Exacerbated by: Other - Urination Similar symptoms previously: Yes Recently seen / treated by doctor: No - Related Data Allergies/Adverse Reactions: No Known Allergies Allergy (Verified 02/19/19 10:10) Past Medical History - General Information source: Patient - Social History Smoking Status: Never Smoker Family History: Reviewed & Not Pertinent Patient has suicidal ideation: No Patient has homicidal ideation: No - Past Medical History Cardiac Medical History: Reports: None Pulmonary Medical History: Reports: None EENT Medical History: Reports: None Neurological Medical History: Reports: None Endocrine Medical History: Reports: None Renal/ Medical History: Reports: None Malignancy Medical History: Reports: None GI Medical History: Reports: None Musculoskeletal Medical History: Reports None Skin Medical History: Reports None Psychiatric Medical History: Reports: None Traumatic Medical History: Reports: Hx Fractures - Arm Infectious Medical History: Reports: None Surgical Hx: Negative Past Surgical History: Reports: None - Immunizations Immunizations up to date: Yes Hx Diphtheria, Pertussis, Tetanus Vaccination: Yes Review of Systems - Review of Systems Constitutional: No symptoms reported EENT: No symptoms reported Cardiovascular: No symptoms reported Respiratory: No symptoms reported Gastrointestinal: No symptoms reported Genitourinary: Burning Female Genitourinary: No symptoms reported, Other - Vaginal Musculoskeletal: No symptoms reported Skin: No symptoms reported Hematologic/Lymphatic: No symptoms reported Neurological/Psychological: No symptoms reported -: Yes All other systems reviewed and negative Physical Exam - Vital signs Vitals: Temp Pulse Resp BP Pulse Ox 98.8 F 84 18 130/61 H 97 10/27/19 11:19 10/27/19 11:19 10/27/19 11:19 10/27/19 11:19 10/27/19 11:19 Interpretation: Normal - General General appearance: Appears well, Alert - HEENT Head: Normocephalic, Atraumatic Eyes: Normal Pupils: PERRL - Respiratory Respiratory status: No respiratory distress Chest status: Nontender Breath sounds: Normal Chest palpation: Normal - Cardiovascular Rhythm: Regular Heart sounds: Normal auscultation Murmur: No - Abdominal Inspection: Normal Distension: No distension Bowel sounds: Normal Tenderness: Nontender Organomegaly: No organomegaly - Back Back: Normal, Nontender - Extremities General upper extremity: Normal inspection, Nontender, Normal color, Normal ROM, Normal temperature General lower extremity: Normal inspection, Nontender, Normal color, Normal ROM, Normal temperature, Normal weight bearing. No: Aracelis's sign - Neurological Neuro grossly intact: Yes Cognition: Normal Orientation: AAOx4 [place] Coma Scale Eye Opening: Spontaneous [place] Coma Scale Verbal: Oriented [place] Coma Scale Motor: Obeys Commands [place] Coma Scale Total: 15 Speech: Normal Motor strength normal: LUE, RUE, LLE, RLE Sensory: Normal - Psychological Associated symptoms: Normal affect, Normal mood - Skin Skin Temperature: Warm Skin Moisture: Dry Skin Color: Normal Course - Re-evaluation Re-evalutation: 10/27/19 15:11 Discussed labs with patient and written report of labs given to patient to follow-up with her primary doctor. Patient was encouraged to increase her fluid intake and her intake of iron rich foods. She was instructed to follow-up with her low H&H. Patient verbalized understanding and agreement with treatment plan and patient was discharged home - Vital Signs Vital signs: Temp Pulse Resp BP Pulse Ox 97.9 F 88 16 115/69 100 10/27/19 14:03 10/27/19 14:03 10/27/19 14:03 10/27/19 14:03 10/27/19 14:03 - Laboratory Result Diagrams: 10/27/19 12:30 10/27/19 12:30 Laboratory results interpreted by me: 04/19/20 04/19/20 12:13 12:30 Hgb 9.3 L Hct 29.5 L MCV 69 L MCH 21.7 L MCHC 31.5 L RDW 18.1 H Urine Protein 100 H Urine Urobilinogen 2.0 H Leukocyte Esterase Rfl TRACE H Discharge - Discharge Clinical Impression: Pain with urination, Dehydration Anemia Qualifiers: Anemia type: unspecified type Qualified Code(s): D64.9 - Anemia, unspecified Condition: Stable Disposition: HOME, SELF-CARE Additional Instructions: Dehydration Dehydration can result from vomiting or diarrhea, fever, or decreased intake of fluids. If severe, hospitalization and intravenous fluids may be required. Most cases are treated at home with fluids by mouth. For the next 24 hours, drink lots of clear fluids. In mild cases, this can be soda pop or sports drinks. For more severe dehydration, the doctor may recommend special fluids such as Pedialyte or Lytren. Try to get three liters (3 quarts) of fluid per day. If vomiting occurs, continue to drink the fluids frequently (every 15 to 20 minutes), but in small amounts (one or two ounces). Depending on the type of dehydration, the doctor may prescribe antinausea medicine or potassium replacements. Call the doctor or return for re-examination if you become progressively weak, vomit repeatedly, or have other new symptoms. Anemia You have been found to have a significant anemia (a lower than normal amount of red blood cells). Anemia can be due to iron deficiency, vitamin deficiency, abnormal bleeding, or internal diseases. Usually, further tests are necessary to find the exact cause of the anemia. The most common cause of anemia is iron deficiency, often brought on by blood loss. This can be treated with iron supplements. If this appears to be the m ost likely cause, iron tablets may be prescribed even before all tests are complete. Contact the doctor at once if you note black or tarry-looking stools, bloody vomiting, shortness of breath, chest pain, or faintness. You were seen for painful urination. There was no swelling or disc coloration to the area. We did still a Monique catheter and and you only had 30 cc output. We then gave you 2 L of fluids and you did drain urine. We have then removed the Monique catheter and you stated you did not need to urinate you went to the bathroom and you did urinate. It is very important that you drink 8 to 10 cups of water a day. Get yourself on a half a gallon mild cup jog what ever and make sure you drink enough water every day to prevent dehydration. Intravenous (IV) Fluids As part of your care today, you received intravenous (IV) fluids. IV fluids are administered to patients who are dehydrated or to those who have certain chemical (electrolyte) abnormalities that need correcting. These increase your foods that have iron in them. You also need to follow-up with your primary care doctor to get further recommendations for your anemia and your discomfort when you urinated. There are no signs and symptoms of any difficulty or problem at this time. You did not have a urinary tract infection. I did give you a copy of the urine report. FOLLOW-UP CARE: If you have been referred to a physician for follow-up care, call the physicians office for an appointment as you were instructed or within the next two days. If you experience worsening or a significant change in your symptoms, notify the physician immediately or return to the Emergency Department at any time for re-evaluation. Referrals: [facility] [Provider Group] - Follow up as needed [facility] [Provider Group] - Follow up as needed [facility] [Provider Group] - Follow up as needed [facility] [Provider Group] - Follow up as needed [facility] [Provider Group] - Follow up as needed
[2019-10-27 13:09] LABS: ALBUMIN 4.1 g/dL (3.5-5.0); ALKALINE PHOSPHATASE 38 U/L (38-126); ANION GAP 5 (5-19); ASPARTATE AMINO TRANSFERASE 15 U/L (14-36); BILIRUBIN,TOTAL 0.3 mg/dL (0.2-1.3); BLOOD UREA NITROGEN 13 mg/dL (7-20); CALCIUM 9.2 mg/dL (8.4-10.2); CARBON DIOXIDE 26 mmol/L (22-30); CHLORIDE 106 mmol/L (98-107); GLUCOSE 90 mg/dL (75-110); POTASSIUM 4.2 mmol/L (3.6-5.0); TOTAL PROTEIN 7.4 g/dL (6.3-8.2)
[2019-10-27 14:05] VITALS: BP 115/69
== END 2019-10-27 15:10 | disposition home or self-care (01) ==
LOC: ER 11:15
DX: R30.0 Dysuria (principal); E86.0 Dehydration; D64.9 Anemia, unspecified; R33.9 Retention of urine, unspecified
CPT/HCPCS: 99283; 96360; 96361; 51702; 36415; 87086; 84703; 85025; 81025; 80053; 81001; J7030

== ENCOUNTER 2019-11-06 14:20 | Emergency (ER) | payer MEDICAID ==
--- NOTE | 2019-11-06 14:34 | ER Document Report ---
ED Medical Screen (RME) - General Chief Complaint: Pain All Over Stated Complaint: BODY PAIN Time Seen by Provider: 11/06/19 14:31 Notes: Patient is a 19-year-old female who presents to the emergency department with a chief complaint of feeling "cold all the time." Patient states that she has had her symptoms for the past month since she had her last child. States that she saw her primary care provider, but states, "they said it was nothing." Patient also states that she has not had a bowel movement in the past week. She has been trying to have a bowel movement, but states that she does not want to push too hard because she does not want to get hemorrhoids. Exam: Soft, mildly tender generalized abdomen. Exam limited due to patient sitting in triage. I have greeted and performed a rapid initial assessment of this patient. A c omprehensive ED assessment and evaluation of the patient, analysis of test results and completion of medical decision making process will be conducted by an additional ED providers. TRAVEL OUTSIDE OF THE [place] IN LAST 30 DAYS: No - Related Data Allergies/Adverse Reactions: No Known Allergies Allergy (Verified 02/19/19 10:10) Past Medical History Pulmonary Medical History: Denies: Hx Asthma, Hx Bronchitis Endocrine Medical History: Denies: Hx Diabetes Mellitus Type 1 Traumatic Medical History: Reports: Hx Fractures - Arm - Immunizations Immunizations up to date: Yes Hx Diphtheria, Pertussis, Tetanus Vaccination: Yes Physical Exam - Vital signs Vitals: Temp Pulse Resp BP Pulse Ox 99.0 F 71 16 94/72 L 100 11/06/19 14:24 11/06/19 14:24 11/06/19 14:24 11/06/19 14:24 11/06/19 14:24 Course - Vital Signs Vital signs: Temp Pulse Resp BP Pulse Ox 99.0 F 71 16 94/72 L 100 11/06/19 14:24 11/06/19 14:24 11/06/19 14:24 11/06/19 14:24 11/06/19 14:24
[2019-11-06 14:49] LABS: ABSOLUTE EOSINOPHILS # (AUTO) 0.1 10^3/uL (0.0-0.6); ABSOLUTE LYMPHOCYTES (AUTO) 2.6 10^3/uL (0.5-4.7); ABSOLUTE MONOCYTES (AUTO) 0.6 10^3/uL (0.1-1.4); ABSOLUTE NEUT (AUTO) 1.6 10^3/uL (1.7-8.2); BASOPHILS % (AUTO) 0.9 % (0-2); EOSINOPHILS % (AUTO) 2.5 % (0-6); HEMATOCRIT 30.1 % (36.0-47.0); HEMOGLOBIN 9.5 g/dL (12.0-15.5); LYMPHOCYTES % (AUTO) 52.6 % (13-45); MEAN CORPUSCULAR HEMOGLOBIN 21.4 pg (27.0-33.4); MEAN CORPUSCULAR HGB CONC 31.5 g/dL (32.0-36.0); MEAN CORPUSCULAR VOLUME 68 fl (80-97); MONOCYTES % (AUTO) 11.9 % (3-13); PLATELET COUNT 417 10^3/uL (150-450); RED BLOOD COUNT 4.42 10^6/uL (3.72-5.28); RED CELL DISTRIBUTION WIDTH 18.7 % (11.5-14.0); SEGMENTED NEUTROPHILS % (AUTO) 32.1 % (42-78); TOTAL CELLS COUNTED % (AUTO) 100 %; WHITE BLOOD COUNT 4.9 10^3/uL (4.0-10.5)
--- NOTE | 2019-11-06 15:07 | RADIOLOGY REPORT (SQ) ---
EXAM DESCRIPTION: KUB/ABDOMEN (SINGLE VIEW) IMAGES COMPLETED DATE/TIME: 11/06/2019 1:43 pm REASON FOR STUDY: no BM in 1 week COMPARISON: None. NUMBER OF VIEWS: One view. TECHNIQUE: Supine radiographic image of the abdomen acquired. LIMITATIONS: None. FINDINGS: BOWEL GAS PATTERN: Normal stool burden. Normal bowel gas pattern. No dilated loops. CALCIFICATIONS: No suspicious calcifications. SOFT TISSUES: No gross mass or suggestion of organomegaly. HARDWARE: None in the abdomen. BONES: No acute fracture. No worrisome bone lesions. OTHER: No other significant finding. IMPRESSION: NO RADIOGRAPHIC EVIDENCE FOR ACUTE ABDOMINAL DISEASE. TECHNICAL DOCUMENTATION: JOB ID: [id number] 2010 [employer]- All Rights Reserved Reading location - IP/workstation name: [email or web address]
[2019-11-06 15:08] LABS: ALBUMIN 4.2 g/dL (3.5-5.0); ALKALINE PHOSPHATASE 37 U/L (38-126); ANION GAP 7 (5-19); ASPARTATE AMINO TRANSFERASE 18 U/L (14-36); BILIRUBIN,TOTAL 0.3 mg/dL (0.2-1.3); BLOOD UREA NITROGEN 12 mg/dL (7-20); CALCIUM 9.2 mg/dL (8.4-10.2); CARBON DIOXIDE 25 mmol/L (22-30); CHLORIDE 105 mmol/L (98-107); GLUCOSE 91 mg/dL (75-110); POTASSIUM 4.2 mmol/L (3.6-5.0); TOTAL PROTEIN 7.7 g/dL (6.3-8.2)
--- NOTE | 2019-11-06 15:20 | ER Document Report ---
ED General - General Chief Complaint: Pain All Over Stated Complaint: BODY PAIN Time Seen by Provider: 11/06/19 14:31 Mode of Arrival: Ambulatory Information source: Patient Notes: Patient presents complaining of feeling cold for the past month. Patient is uncertain if she may be anemic. Patient also reports having constipation in which she has not had a bowel movement for the past week. Patient denies any nausea or vomiting. Patient complains also of generalized leg pain to bilateral lower extremities and has a [id number]-[id number]-ethilct sensation periodically to her feet. TRAVEL OUTSIDE OF THE [place] IN LAST 30 DAYS: No - HPI Onset/Duration: Persistent Quality of pain: Achy Pain Level: 1 Associated symptoms: Body/muscle aches. denies: Nonproductive cough, Productive cough, Diarrhea, Fever, Headache, Nausea, Vomiting, Shortness of breath Exacerbated by: Denies Relieved by: Denies Similar symptoms previously: No Recently seen / treated by doctor: No - Related Data Allergies/Adverse Reactions: No Known Allergies Allergy (Verified 02/19/19 10:10) Home Medications: control Past Medical History - General Information source: Patient - Social History Smoking Status: Never Smoker Chew tobacco use (# tins/day): No Frequency of alcohol use: None Drug Abuse: None Lives with: Family Family History: Reviewed & Not Pertinent Patient has homicidal ideation: No - Medical History Medical History: Negative Pulmonary Medical History: Denies: Hx Asthma, Hx Bronchitis Endocrine Medical History: Denies: Hx Diabetes Mellitus Type 1 Traumatic Medical History: Reports: Hx Fractures - Arm Surgical Hx: Negative - Immunizations Immunizations up to date: Yes Hx Diphtheria, Pertussis, Tetanus Vaccination: Yes Review of Systems - Review of Systems Constitutional: Chills. denies: Fever, Recent illness EENT: No symptoms reported Cardiovascular: No symptoms reported. denies: Chest pain, Palpitations, Dizzi ness Respiratory: No symptoms reported. denies: Cough, Short of breath Gastrointestinal: Abdominal pain - cramping, Constipation. denies: Diarrhea, Nausea, Vomiting Genitourinary: No symptoms reported. denies: Dysuria, Flank pain Female Genitourinary: No symptoms reported Musculoskeletal: Muscle pain. denies: Back pain, Leg swelling, Ankle swelling Skin: No symptoms reported Hematologic/Lymphatic: No symptoms reported Neurological/Psychological: No symptoms reported Physical Exam - Vital signs Vitals: Temp Pulse Resp BP Pulse Ox 99.0 F 71 16 94/72 L 100 11/06/19 14:24 11/06/19 14:24 11/06/19 14:24 11/06/19 14:24 11/06/19 14:24 - General General appearance: Appears well, Alert In distress: None - HEENT Head: Normocephalic, Atraumatic Eyes: Normal Conjunctiva: Normal Nasal: Normal Mouth/Lips: Normal Neck: Normal, Supple. No: Lymphadenopathy - Respiratory Respiratory status: No respiratory distress Chest status: Nontender Breath sounds: Normal Chest palpation: Normal - Cardiovascular Rhythm: Regular Heart sounds: S1 appreciated, S2 appreciated Murmur: No - Abdominal Inspection: Normal Distension: No distension Bowel sounds: Normal Tenderness: Tender - Generalized abdominal tenderness. No: Guarding Organomegaly: No organomegaly - Back Back: Normal, Nontender. No: CVA tenderness - Extremities General upper extremity: Normal inspection, Normal ROM General lower extremity: Normal inspection, Tender - Generalized lower extremity tenderness, Normal color, Normal ROM, Normal strength, Normal temperature, Normal weight bearing. No: Edema - Neurological Neuro grossly intact: Yes Cognition: Normal Kranthi Coma Scale Eye Opening: Spontaneous [place]rant[place] Coma Scale Verbal: Oriented Kranthi Coma Scale Motor: Obeys Commands [place] Coma Scale Total: 15 - Psychological Associated symptoms: Normal affect, Normal mood - Skin Skin Temperature: Warm Skin Moisture: Dry Skin Color: Normal Course - Re-evaluation Re-evalutation: 11/06/19 16:26 Patient with anemia although does not require transfusion at this time. Review of patient's previous labs demonstrates she has been anemic for some time. Patient states she recently started oral contraceptive pills 2 months ago. Since starting the oral contraceptive pills her vaginal bleeding has decreased significantly. Patient states prior to that she did have heavy menses. Patient's x-ray reviewed, no concern for any bowel obstruction. Patient encouraged to increase oral fluids stay well-hydrated and increase iron in the diet. Will provide patient with an iron supplement as well as MiraLAX to take at home. Good return precautions discussed with patient. - Vital Signs Vital signs: Temp Pulse Resp BP Pulse Ox 99 F 71 16 94/72 L 100 11/06/19 14:27 11/06/19 14:24 11/06/19 14:24 11/06/19 14:24 11/06/19 14:24 - Laboratory Result Diagrams: 11/06/19 14:35 11/06/19 14:35 Laboratory results interpreted by me: 11/06/19 11/06/19 14:35 14:35 Hgb 9.5 L Hct 30.1 L MCV 68 L MCH 21.4 L MCHC 31.5 L RDW 18.7 H Lymph % (Auto) 52.6 H Absolute Neuts (auto) 1.6 L Seg Neutrophils % 32.1 L Sodium 136.7 L Alkaline Phosphatase 37 L 11/06/19 16:28 Labs- Entire Visit 11/06/19 11/06/19 11/06/19 14:35 14:35 14:35 WBC 4.9 RBC 4.42 Hgb 9.5 L Hct 30.1 L MCV 68 L MCH 21.4 L MCHC 31.5 L RDW 18.7 H Plt Count 417 Lymph % (Auto) 52.6 H [place] % (Auto) 11.9 Eos % (Auto) 2.5 Baso % (Auto) 0.9 Absolute Neuts (auto) 1.6 L Absolute Lymphs (auto) 2.6 Absolute Monos (auto) 0.6 Absolute Eos (auto) 0.1 Absolute Basos (auto) 0.0 Seg Neutrophils % 32.1 L Sodium 136.7 L Potassium 4.2 Chloride 105 Carbon Dioxide 25 Anion Gap 7 BUN 12 Creatinine 0.60 Est GFR ( Amer) > 60 Est GFR (MDRD) Non-Af > 60 Glucose 91 Calcium 9.2 Total Bilirubin 0.3 Direct Bilirubin 0.0 Neonat Total Bilirubin Not Reportable Neonat Direct Bilirubin Not Reportable Neonat Indirect Bili Not Reportable AST 18 ALT 10 Alkaline Phosphatase 37 L Creatine Kinase Total Protein 7.7 Albumin 4.2 TSH 1.55 Free T4 1.42 Free T3 pg/mL 3.78 Serum HCG, Qual 11/06/19 11/06/19 14:35 14:35 WBC RBC Hgb Hct MCV MCH MCHC RDW Plt Count Lymph % (Auto) [place] % (Auto) Eos % (Auto) Baso % (Auto) Absolute Neuts (auto) Absolute Lymphs (auto) Absolute Monos (auto) Absolute Eos (auto) Absolute Basos (auto) Seg Neutrophils % Sodium Potassium Chloride Carbon Dioxide Anion Gap BUN Creatinine Est GFR ( Amer) Est GFR (MDRD) Non-Af Glucose Calcium Total Bilirubin Direct Bilirubin Neonat Total Bilirubin Neonat Direct Bilirubin Neonat Indirect Bili AST ALT Alkaline Phosphatase Creatine Kinase 48 Total Protein Albumin TSH Free T4 Free T3 pg/mL Serum HCG, Qual NEGATIVE - Diagnostic Test Radiology reviewed: Image reviewed, Reports reviewed Discharge - Discharge Clinical Impression: Constipation Qualifiers: Constipation type: unspecified constipation type Qualified Code(s): K59.00 - Constipation, unspecified Anemia Qualifiers: Anemia type: unspecified type Qualified Code(s): D64.9 - Anemia, unspecified Condition: Stable Disposition: HOME, SELF-CARE Instructions: Anemia ([facility]), Constipation ([facility]) Additional Instructions: Return immediately for any new or worsening symptoms Followup with your primary care provider, call tomorrow to make a followup appointment Increase foods rich in iron in your diet Stay well-hydrated Prescriptions: Ferrous Sulfate [Feosol 325 mg Tablet] 325 mg PO TID #45 tab Polyethylene Glycol 3350 [Miralax] 17 gm PO DAILY #119 powder Referrals: [facility] [Provider Group] - Follow up as needed
[2019-11-06 15:37] LABS: FREE T3 3.78 pg/mL (2.77-5.27); FREE T4 (FREE THYROXINE) 1.42 ng/dL (0.78-2.19)
[2019-11-06 15:50] LABS: THYROID STIMULATING HORMONE 1.55 uIU/mL (0.47-4.68)
[2019-11-06] MEDS ORDERED: MAGNESIUM HYDROXIDE SUSP 30 ML UDCUP PO ONE (16:28)
[2019-11-06 17:24] VITALS: BP 100/60
== END 2019-11-06 17:01 | disposition home or self-care (01) ==
LOC: ER 14:20
DX: D64.9 Anemia, unspecified (principal); K59.00 Constipation, unspecified; M79.604 Pain in right leg; M79.605 Pain in left leg; R20.2 Paresthesia of skin; R68.83 Chills (without fever); R10.9 Unspecified abdominal pain; R10.817 Generalized abdominal tenderness; M79.10 Myalgia, unspecified site; Z79.3 Long term (current) use of hormonal contraceptives
CPT/HCPCS: 99283; 36415; 84439; 82550; 84443; 84703; 85025; 80053; 84481; 74018; J3490

== ENCOUNTER 2019-12-01 18:44 | Emergency (ER) | payer MEDICAID ==
--- NOTE | 2019-12-01 19:10 | ER Document Report ---
ED Medical Screen (RME) - General Chief Complaint: Vaginal Bleeding Stated Complaint: ABDOMINAL PAIN Time Seen by Provider: 12/01/19 19:01 Notes: Patient is a 19-year-old female who presents to the emergency department with a chief complaint of vaginal bleeding. Patient states that ever since she had her child back in January 2019, she has had irregular vaginal bleeding. Patient states that she is passing clots. Patient states that her last true menstrual cycle was November 16-. States that every time she passes clots, she ends up having excruciating pain. Exam: Tender mid lower abdomen. Exam limited due to patient in triage. I have greeted and performed a rapid initial assessment of this patient. A comprehensive ED assessment and evaluation of the patient, analysis of test results and completion of medical decision making process will be conducted by an additional ED providers. TRAVEL OUTSIDE OF THE [place] IN LAST 30 DAYS: No - Related Data Allergies/Adverse Reactions: No Known Allergies Allergy (Verified 12/01/19 19:02) Past Medical History - Social History Chew tobacco use (# tins/day): No Frequency of alcohol use: None Drug Abuse: None Pulmonary Medical History: Denies: Hx Asthma, Hx Bronchitis Endocrine Medical History: Denies: Hx Diabetes Mellitus Type 1 Traumatic Medical History: Reports: Hx Fractures - Arm - Immunizations Immunizations up to date: Yes Hx Diphtheria, Pertussis, Tetanus Vaccination: Yes Physical Exam - Vital signs Vitals: Temp Pulse Resp BP Pulse Ox 98.3 F 66 14 118/69 97 12/01/19 18:48 12/01/19 18:48 12/01/19 18:48 12/01/19 18:48 12/01/19 18:48 Course - Vital Signs Vital signs: Temp Pulse Resp BP Pulse Ox 98.3 F 66 14 118/69 97 12/01/19 19:02 12/01/19 18:48 12/01/19 18:48 12/01/19 18:48 12/01/19 18:48
[2019-12-01 20:03] LABS: ABSOLUTE EOSINOPHILS # (AUTO) 0.1 10^3/uL (0.0-0.6); ABSOLUTE LYMPHOCYTES (AUTO) 2.4 10^3/uL (0.5-4.7); ABSOLUTE MONOCYTES (AUTO) 0.5 10^3/uL (0.1-1.4); BASOPHILS % (AUTO) 0.5 % (0-2); EOSINOPHILS % (AUTO) 2.8 % (0-6); HEMATOCRIT 32.5 % (36.0-47.0); HEMOGLOBIN 10.2 g/dL (12.0-15.5); LYMPHOCYTES % (AUTO) 47.6 % (13-45); MEAN CORPUSCULAR HEMOGLOBIN 21.6 pg (27.0-33.4); MEAN CORPUSCULAR HGB CONC 31.4 g/dL (32.0-36.0); MEAN CORPUSCULAR VOLUME 69 fl (80-97); MONOCYTES % (AUTO) 9.1 % (3-13); PLATELET COUNT 414 10^3/uL (150-450); RED BLOOD COUNT 4.73 10^6/uL (3.72-5.28); RED CELL DISTRIBUTION WIDTH 20.4 % (11.5-14.0); TOTAL CELLS COUNTED % (AUTO) 100 %; WHITE BLOOD COUNT 5.1 10^3/uL (4.0-10.5)
[2019-12-01 20:24] LABS: ALBUMIN 4.3 g/dL (3.5-5.0); ALKALINE PHOSPHATASE 41 U/L (38-126); ANION GAP 8 (5-19); ASPARTATE AMINO TRANSFERASE 21 U/L (14-36); BILIRUBIN,TOTAL 0.3 mg/dL (0.2-1.3); BLOOD UREA NITROGEN 11 mg/dL (7-20); CALCIUM 9.9 mg/dL (8.4-10.2); CARBON DIOXIDE 29 mmol/L (22-30); CHLORIDE 101 mmol/L (98-107); GLUCOSE 99 mg/dL (75-110); POTASSIUM 4.1 mmol/L (3.6-5.0); TOTAL PROTEIN 7.7 g/dL (6.3-8.2)
--- NOTE | 2019-12-01 20:49 | RADIOLOGY REPORT (SQ) ---
US PELVIS HISTORY: Pelvic pain. COMPARISON: None. TECHNIQUE: Grayscale, color Doppler, and spectral Doppler ultrasound images of the pelvis were obtained. FINDINGS: The uterus is retroverted and measures 9.5 x 5.0 x 6.0 cm. The endometrium measures 1.7 cm in thickness and is mildly heterogeneous a tiny echogenic structures, nonspecific. The cervix is 2.8 cm in length. No intrauterine fibroids are seen. The right ovary measures 7.6 x 2.9 x 3.4 cm and the left ovary measuring 4.7 x 2.3 x 2.4 cm. Normal color Doppler blood flow is seen in both ovaries. There is a 6.6 x 2.6 cm mildly complex and septated cystic structure in the right ovary. There is also a 2.9 x 2.6 cm oval cyst in the left ovary. No free fluid is seen. IMPRESSION: Multiple ovarian cysts found with different severities: 6.6 cm indeterminate ovarian cyst, 2.9 cm simple ovarian cyst. Consider the following unique recommendation(s) for the most severe cyst(s): For 6.6 cm indeterminate ovarian cyst, Recommend pelvic US follow-up in 6-12 weeks; if unchanged, continue follow-up with US OR MRI with IV contrast - if follow-up studies do not confirm endometrioma or dermoid, consider surgical evaluation. If cyst has internal nodule without blood flow/enhancing, recommend pelvic MRI with IV contrast or surgical evaluation. Reference: Radiology 2010 Sep;256(3):943-71
[2019-12-01 21:59] VITALS: BP 112/72
--- NOTE | 2019-12-02 01:07 | ER Document Report ---
Entered by ZOEY AGUILAR SCRIBE 12/01/192019 Acting as scribe for:CAROLYN HOWE DO ED General - General Chief Complaint: Vaginal Bleeding Stated Complaint: ABDOMINAL PAIN Time Seen by Provider: 12/01/19 19:01 Primary Care Provider: BJORN MATT MD [ACTIVE STAFF] - Follow up as needed Information source: Patient Notes: This 19 year old female patient presents to the emergency department today with complaints of lower abdominal pain. Patient states the pain is similar to a cramp and travels down. Patient states she gave x10 months ago and has had abnormal periods since. Patient states she is taking control and has shorter periods, her last being around x2 weeks ago. Patient states this morning there was pain in her lower abdomen, pushed on her stomach, and she had a clot come out. Patient states her urine is normal. TRAVEL OUTSIDE OF THE [place] IN LAST 30 DAYS: No - Related Data Allergies/Adverse Reactions: No Known Allergies Allergy (Verified 12/01/19 19:02) Past Medical History - General Information source: Patient - Social History Smoking Status: Never Smoker Cigarette use (# per day): No Chew tobacco use (# tins/day): No Frequency of alcohol use: None Drug Abuse: None Family History: Reviewed & Not Pertinent Patient has homicidal ideation: No Traumatic Medical History: Reports: Hx Fractures - Arm - Immunizations Immunizations up to date: Yes Hx Diphtheria, Pertussis, Tetanus Vaccination: Yes Review of Systems - Review of Systems Constitutional: No symptoms reported EENT: No symptoms reported Cardiovascular: No symptoms reported Respiratory: No symptoms reported Gastrointestinal: See HPI, Abdominal pain Genitourinary: See HPI Female Genitourinary: See HPI Musculoskeletal: No symptoms reported Skin: No symptoms reported Hematologic/Lymphatic: No symptoms reported Neurological/Psychological: No symptoms reported -: Yes All other systems reviewed and negative Physical Exam - Vital signs Vitals: Temp Pulse Resp BP Pulse Ox 98.3 F 66 14 118/69 97 12/01/19 18:48 12/01/19 18:48 12/01/19 18:48 12/01/19 18:48 12/01/19 18:48 - General General appearance: Appears well, Alert - HEENT Head: Normocephalic, Atraumatic Eyes: Normal Pupils: PERRL - Respiratory Respiratory status: No respiratory distress Chest status: Nontender Breath sounds: Normal Chest palpation: Normal - Cardiovascular Rhythm: Regular Heart sounds: Normal auscultation Murmur: No - Abdominal Inspection: Normal Distension: No distension Bowel sounds: Normal Tenderness: Nontender - Extremities General upper extremity: Normal inspection. No: Edema General lower extremity: Normal inspection. No: Edema - Neurological Neuro grossly intact: Yes Cognition: Normal Orientation: AAOx4 - Psychological Associated symptoms: Normal affect, Normal mood - Skin Skin Temperature: Warm Skin Moisture: Dry Skin Color: Normal Course - Re-evaluation Re-evalutation: 12/01/19 21:41 MDM 19 year old with irregular menstral periods since childbirth a year ago. Workup here shows ovarian cysts and mild anemia. We discussed follow up. - Vital Signs Vital signs: Temp Pulse Resp BP Pulse Ox 98.1 F 71 16 112/72 99 12/01/19 21:59 12/01/19 21:59 12/01/19 21:59 12/01/19 21:59 12/01/19 21:59 - Laboratory Result Diagrams: 12/01/19 19:38 12/01/19 19:38 Laboratory results interpreted by me: 12/01/19 19:38 Hgb 10.2 L Hct 32.5 L MCV 69 L MCH 21.6 L MCHC 31.4 L RDW 20.4 H Lymph % (Auto) 47.6 H Seg Neutrophils % 40.0 L - Diagnostic Test Radiology reviewed: Reports reviewed Discharge - Discharge Clinical Impression: Ovarian cyst Qualifiers: Laterality: bilateral Qualified Code(s): N83.201 - Unspecified ovarian cyst, right side; N83.202 - Unspecified ovarian cyst, left side Condition: Good Disposition: HOME, SELF-CARE Instructions: Anemia ([facility]), Ovarian Cyst ([facility]) Additional Instructions: Take the naprosyn as needed for pain, cramping. Your blood count was a bit low and a vitamin with iron would likely be helpful with this. See your doctor or the referral doctor to discuss Depo provera shots or another medicine for medicine. Prescriptions: Naproxen [Naprosyn] 500 mg PO BID #20 tablet Referrals: BJORN MATT MD [ACTIVE STAFF] - Follow up as needed I personally performed the services described in the documentation, reviewed and edited the documentation which was dictated to the scribe in my presence, and it accurately records my words and actions.
== END 2019-12-01 20:00 | disposition home or self-care (01) ==
LOC: ER 18:44
DX: N83.201 Unspecified ovarian cyst, right side (principal); N83.202 Unspecified ovarian cyst, left side; D64.9 Anemia, unspecified; R10.30 Lower abdominal pain, unspecified; N93.9 Abnormal uterine and vaginal bleeding, unspecified
CPT/HCPCS: 36415; 76830; 80053; 84703; 85025; 93976; 99284

== ENCOUNTER 2020-01-28 01:50 | Emergency (ER) | payer MEDICAID ==
[2020-01-28 02:45] LABS: APPEARANCE,URINE SLIGHTLY-CLOUDY; BILIRUBIN,URINE NEGATIVE (NEGATIVE); COLOR,URINE YELLOW; GLUCOSE, URINE NEGATIVE (NEGATIVE); KETONES,URINE 20 mg/dL (NEGATIVE); LEUKOCYTE ESTERASE,URINE TRACE (NEGATIVE); NITRITE,URINE NEGATIVE (NEGATIVE); PROTEIN,URINE 30 mg/dL (NEGATIVE); UROBILINOGEN,URINE NEGATIVE mg/dL (<2.0)
[2020-01-28] MEDS ORDERED: ONDANSETRON ODT 4 MG TAB (6 TAB/ER DISP) PO PRN (02:47)
[2020-01-28 02:58] VITALS: BP 132/70
--- NOTE | 2020-01-28 03:47 | ER Document Report ---
Entered by YANET SOTO SCRIBE 01/28/20 0243 Acting as scribe for:RADHA LANDIN DO ED General - General Chief Complaint: General Weakness Stated Complaint: FATIGUE,VOMITING,MISSED PERIOD/WANTS TYLER Time Seen by Provider: 01/28/20 02:39 Information source: Patient Notes: This 19-year-old female patient presents to the emergency department today with complaints of a missed period. Patient states she has had two weeks of nausea and vomiting, headache, and feeling generally tired. Patient states that she thinks she might be . Patient denies a cough or fever. TRAVEL OUTSIDE OF THE [place] IN LAST 30 DAYS: No - Related Data Allergies/Adverse Reactions: No Known Allergies Allergy (Verified 01/28/20 02:46) Past Medical History - General Information source: Patient - Social History Smoking Status: Never Smoker Cigarette use (# per day): No Frequency of alcohol use: None Drug Abuse: None Lives with: Family Family History: Reviewed & Not Pertinent Traumatic Medical History: Reports: Hx Fractures - Arm Surgical Hx: Negative - Immunizations Immunizations up to date: Yes Hx Diphtheria, Pertussis, Tetanus Vaccination: Yes Review of Systems - Review of Systems Constitutional: See HPI, Other - tired EENT: No symptoms reported Cardiovascular: No symptoms reported Respiratory: No symptoms reported Gastrointestinal: See HPI, Nausea, Vomiting Genitourinary: No symptoms reported Female Genitourinary: See HPI, Other - missed period Musculoskeletal: No symptoms reported Skin: No symptoms reported Hematologic/Lymphatic: No symptoms reported Neurological/Psychological: See HPI, Headaches -: Yes All other systems reviewed and negative Physical Exam - Vital signs Vitals: Temp Pulse Resp BP Pulse Ox 98.9 F 96 17 127/67 H 100 01/28/20 01:51 01/28/20 01:51 01/28/20 01:51 01/28/20 01:51 01/28/20 01:51 Interpretation: Normal - General General appearance: Appears well, Alert In distress: None - Respiratory Respiratory status: No respiratory distress Breath sounds: Normal - Cardiovascular Rhythm: Regular - Abdominal Bowel sounds: Normal Tenderness: Nontender - Extremities General upper extremity: Normal inspection, Normal ROM General lower extremity: Normal inspection, Normal ROM, Normal weight bearing - Neurological Neuro grossly intact: Yes Cognition: Normal Orientation: AAOx4 Kranthi Coma Scale Eye Opening: Spontaneous [place] Coma Scale Verbal: Oriented [place] Coma Scale Motor: Obeys Commands Kranthi Coma Scale Total: 15 - Psychological Associated symptoms: Normal affect, Normal mood Course - Re-evaluation Re-evalutation: 01/28/20 test is negative. Patient will be given a Zofran dispense pack. Follow-up with PMD. Return if further concerns or symptoms. Understands and agrees with plan. Stable for discharge. - Vital Signs Vital signs: Temp Pulse Resp BP Pulse Ox 98.4 F 90 16 132/70 H 100 01/28/20 02:55 01/28/20 02:55 01/28/20 02:55 01/28/20 02:55 01/28/20 02:55 - Laboratory Laboratory results interpreted by me: 01/28/20 02:05 Urine Protein 30 H Urine Ketones 20 H Ur Leukocyte Esterase TRACE H Discharge - Discharge Clinical Impression: Nausea Condition: Stable Disposition: HOME, SELF-CARE Instructions: Nausea or Vomiting, Nonspecific ([facility]) Additional Instructions: Please follow-up with your doctor this week. Forms: Return to Work I personally performed the services described in the documentation, reviewed and edited the documentation which was dictated to the scribe in my presence, and it accurately records my words and actions.
== END 2020-01-28 02:55 | disposition home or self-care (01) ==
LOC: ER 01:50
DX: R11.2 Nausea with vomiting, unspecified (principal); R51 Headache; R53.83 Other fatigue; Z32.02 Encounter for pregnancy test, result negative
CPT/HCPCS: 81001; 81025; 99283